=== PATIENT | female | born 1970 | race African-American/Black ===

== ENCOUNTER 2020-04-12 18:36 | Emergency (ER) | payer MEDICARE, OTHER ==
[~2020-04-12] VITALS: Ht 175.3 cm; Wt 99.8 kg
--- NOTE | 2020-04-12 18:54 | NUR ---
PT SELF PRESENTS TO ED. AMBULATORY W/ STETADY GAIT C/O DEPRESSION AND SUICIDAL IDEATION X 1 WEEK S/P FROM A FAMILY MEMBER. PT DENIES HI. PT IS WILLING TO GO VOLUNTARY TO PSYCH FACILITY. COOPERATIVE TO STAFF. AWAITING MD HOWELL.
--- NOTE | 2020-04-12 18:56 | NUR ---
DR DIAZ AT BEDSIDE FOR EVAL.
--- NOTE | 2020-04-12 19:00 | NUR ---
LIGHTING FIXTURES DECORATOR AT BEDSIDE FOR BLOOD DRAW.
--- NOTE | 2020-04-12 19:05 | NUR ---
REC'D REPORT FROM MELANI RAMSEY FOR ROBBIE
[2020-04-12 19:06] LABS: BASOPHILS # (AUTO) 0.1 /CMM (0.0-0.2); BASOPHILS % (AUTO) 1.2 % (0.0-2.0); EOSINOPHILS % (AUTO) 4.7 % (0.0-6.0); HEMATOCRIT 35 % (33-45); HEMOGLOBIN 11.4 g/dL (11.5-14.8); LYMPHOCYTES # (AUTO) 1.9 /CMM (0.8-4.8); LYMPHOCYTES % (AUTO) 35.2 % (20.0-44.0); MEAN CORPUSCULAR HGB CONC 32 g/dl (31.0-36.0); MEAN CORPUSCULAR VOLUME 76 fL (82-100); MONOCYTES # (AUTO) 0.6 /CMM (0.1-1.30); MONOCYTES % (AUTO) 10.4 % (2.0-12.0); NEUTROPHILS # (AUTO) 2.6 /CMM (1.8-8.9); NEUTROPHILS % (AUTO) 48.5 % (43.0-81.0); PLATELET COUNT (AUTO) 222 /CMM (150-450); RED BLOOD CELL COUNT(AUTO) 4.67 MIL/uL (4.0-5.2); WHITE BLOOD COUNT (AUTO) 5.4 K/uL (4.3-11.0)
--- NOTE | 2020-04-12 19:15 | NUR ---
REPORT TO KVNG POLO FOR ROBBIE.
[2020-04-12 19:22] LABS: ALANINE AMINOTRANSFERASE 50 U/L (12-78); ALBUMIN 3.2 g/dL (3.4-5.0); ALCOHOL, BLOOD < 3 mg/dL (0-0); ALKALINE PHOSPHATASE 77 U/L (46-116); ASPARTATE AMINOTRANSFERASE 22 U/L (15-37); BILIRUBIN,DIRECT 0.1 mg/dL (0.0-0.2); BILIRUBIN,TOTAL 0.1 mg/dL (0.2-1.0); CARBON DIOXIDE 32 mmol/L (21-32); CHLORIDE 103 mmol/L (98-107); CREATININE 0.7 mg/dL (0.6-1.3); GLUCOSE 85 mg/dL (74-106); POTASSIUM 3.7 mmol/L (3.5-5.1); SODIUM SERUM 140 mmol/L (136-145); TOTAL PROTEIN, SERUM 7.2 g/dL (6.4-8.2); UREA NITROGEN, BLOOD 26 mg/dL (7-18)
[2020-04-12 19:25] LABS: BILIRUBIN,URINE Negative (NEGATIVE); COLOR,URINE YELLOW (YELLOW); LEUKOCYTE ESTERASE ,URINE Small (NEGATIVE); NITRITE, URINE Negative (NEGATIVE); PROTEIN,URINE Negative (NEGATIVE); UGLUCOSE Negative (NEGATIVE); UROBILINOGEN,URINE 0.2 EU/dL (0.2)
[2020-04-12 19:34] LABS: CALCIUM, SERUM 8.8 mg/dL (8.5-10.1)
[2020-04-12 19:35] LABS: ACETAMINOPHEN < 10 ug/ml (10-30)
[2020-04-12 19:36] LABS: RBC,URINE 0-2 /HPF (0-2)
[2020-04-12 19:37] LABS: BACTERIA,URINE Few /HPF (None Seen)
--- NOTE | 2020-04-12 19:40 | NUR ---
JUSTOID SWABBED, SENT TO LAB.
--- NOTE | 2020-04-12 20:07 | NUR ---
CLINICAL AND FACESHEET FAXED TO [facility] FOR VOLUNTARY ADMISSION.
--- NOTE | 2020-04-12 21:10 | NUR ---
PT WATCHING TV, NAD NOTED.
--- NOTE | 2020-04-12 21:32 | NUR ---
TRANSFER INFORMATION; PT ACCEPTED AT [facility] ACCEPTING MD ALTAMIRANO PHONE # FOR REPORT PT WILL GO TO UNIT 1
--- NOTE | 2020-04-12 22:08 | NUR ---
CALLED [id number] FOR TRANSPORT TRIP #[phone].
--- NOTE | 2020-04-12 22:24 | NUR ---
ATTEMPTED TO GIVE REPORT TO KELLY RAUSCH, NO ANSWER. WILL FOLLOW UP
--- NOTE | 2020-04-12 22:33 | NUR ---
[facility] ETA 0030
--- NOTE | 2020-04-12 22:53 | NUR ---
REPORT GIVEN TO MELANI HOLLIS FROM [facility] FOR [facility]
--- NOTE | 2020-04-13 00:33 | NUR ---
REPORT GIVEN TO [facility] UN[address] FOR TRANSPORTATION ROBBIE
[2020-04-13 00:34] VITALS: BP 138/77
== END 2020-04-13 00:39 ==
LOC: ER 18:44
DX: R45.851 Suicidal ideations (principal); F31.9 Bipolar disorder, unspecified; I10 Essential (primary) hypertension; Z20.822 Contact with and (suspected) exposure to COVID-19; J45.909 Unspecified asthma, uncomplicated; Z88.2 Allergy status to sulfonamides
CPT/HCPCS: 36415; 80048; 80076; 80299; 80307; 80320; 81001; 84703; 85025; 87086; 87426; 99285; C9803; G0480

== ENCOUNTER 2020-05-03 15:26 | Emergency (ER) | payer OTHER ==
[~2020-05-03] VITALS: Ht 175.3 cm; Wt 95.7 kg
--- NOTE | 2020-05-03 15:40 | NUR ---
THE PATIENT BIB FOR C/O HEARING VOICES TELLING HER TO OD ON MEDS, WANTS TO BE ADMITTED VOLUNTARILY. THE PATIENT IS ALERT AND ORIENTED X3. DENIES PAIN. IN ROOM AIR AND DENIES SOB. RESPIRATION REGULAR AND UNLABORED. THE PATIENT IS PROVIDED WITH A BLANKET FOR COMFORT. WILL CONTINUE TO MONITOR.
[2020-05-03 16:55] LABS: BASOPHILS # (AUTO) 0.1 /CMM (0.0-0.2); BASOPHILS % (AUTO) 1.4 % (0.0-2.0); EOSINOPHILS % (AUTO) 4.9 % (0.0-6.0); HEMATOCRIT 37 % (33-45); HEMOGLOBIN 12.2 g/dL (11.5-14.8); LYMPHOCYTES # (AUTO) 1.8 /CMM (0.8-4.8); LYMPHOCYTES % (AUTO) 39.5 % (20.0-44.0); MEAN CORPUSCULAR HGB CONC 33 g/dl (31.0-36.0); MEAN CORPUSCULAR VOLUME 76 fL (82-100); MONOCYTES # (AUTO) 0.5 /CMM (0.1-1.30); MONOCYTES % (AUTO) 11.6 % (2.0-12.0); NEUTROPHILS # (AUTO) 1.9 /CMM (1.8-8.9); NEUTROPHILS % (AUTO) 42.6 % (43.0-81.0); PLATELET COUNT (AUTO) 206 /CMM (150-450); RED BLOOD CELL COUNT(AUTO) 4.86 MIL/uL (4.0-5.2); WHITE BLOOD COUNT (AUTO) 4.5 K/uL (4.3-11.0)
[2020-05-03 17:07] LABS: BILIRUBIN,URINE Negative (NEGATIVE); COLOR,URINE DARK YELLOW (YELLOW); LEUKOCYTE ESTERASE ,URINE Negative (NEGATIVE); NITRITE, URINE Negative (NEGATIVE); PH,URINE 5.5 (5.0-8.0); PROTEIN,URINE Negative (NEGATIVE); UGLUCOSE Negative (NEGATIVE); UROBILINOGEN,URINE 0.2 EU/dL (0.2)
[2020-05-03 17:35] LABS: ALANINE AMINOTRANSFERASE 26 U/L (12-78); ALBUMIN 3.5 g/dL (3.4-5.0); ALCOHOL, BLOOD < 3 mg/dL (0-0); ALKALINE PHOSPHATASE 82 U/L (46-116); ASPARTATE AMINOTRANSFERASE 17 U/L (15-37); BILIRUBIN,TOTAL 0.2 mg/dL (0.2-1.0); CALCIUM, SERUM 8.8 mg/dL (8.5-10.1); CARBON DIOXIDE 26 mmol/L (21-32); CHLORIDE 102 mmol/L (98-107); CREATININE 0.7 mg/dL (0.6-1.3); GLUCOSE 77 mg/dL (74-106); POTASSIUM 3.7 mmol/L (3.5-5.1); SODIUM SERUM 138 mmol/L (136-145); TOTAL PROTEIN, SERUM 7.5 g/dL (6.4-8.2); UREA NITROGEN, BLOOD 19 mg/dL (7-18)
[2020-05-03 17:51] LABS: BACTERIA,URINE Moderate /HPF (None Seen); RBC,URINE 21-50 /HPF (0-2)
[2020-05-03 17:52] LABS: SQUAMOUS EPITHELIAL CELL,UR Many /HPF (None Seen)
[2020-05-03 17:52] LABS: ACETAMINOPHEN < 0 ug/ml (10-30)
--- NOTE | 2020-05-03 17:56 | NUR ---
Patient is resting comfortably in bed with eyes closed. Easily aroused. VSS
--- NOTE | 2020-05-03 19:30 | NUR ---
CLINICAL AND FAXED TO [facility] INTAKE FOR VOLUNTARY PSYCH ADMISSION.
--- NOTE | 2020-05-04 00:25 | NUR ---
PT ACCEPTED AT [facility] ACCEPTING MD CALDWELL PHONE# FOR REPORT EXT [phone] ROOM WILL BE PROVIDED DURING REPORT.
--- NOTE | 2020-05-04 01:01 | NUR ---
[facility] CALL THE CAR CALLED FOR TRANSPORT. TRIP# [phone]
--- NOTE | 2020-05-04 01:17 | NUR ---
[address] FROM CALL THE CAR BOBBI ETA WILL BE AT [phone]
--- NOTE | 2020-05-04 01:57 | NUR ---
REPORT GIVEN TO ROSEMARY POLO FOR ROBBIE
[2020-05-04 05:10] VITALS: BP 129/63
--- NOTE | 2020-05-04 05:13 | NUR ---
REPORT GIVEN TO [facility] EMT, PT TRANSFERED.
== END 2020-05-04 05:17 ==
LOC: ER 15:27
DX: R45.851 Suicidal ideations (principal); F31.9 Bipolar disorder, unspecified; J45.909 Unspecified asthma, uncomplicated; I10 Essential (primary) hypertension; Z82.49 Family history of ischemic heart disease and other diseases of the circulatory system; Z20.822 Contact with and (suspected) exposure to COVID-19
CPT/HCPCS: 36415; 80048; 80076; 80299; 80307; 80320; 81001; 84703; 85025; 87086; 87426; 99285; C9803; G0480

== ENCOUNTER 2020-06-08 09:55 | Emergency (ER) | payer MEDICARE, OTHER ==
[~2020-06-08] VITALS: Ht 175.3 cm; Wt 95.3 kg
--- NOTE | 2020-06-08 11:02 | NUR ---
PATIENT BIBS FOR C/O FEELING SUICIDAL BY OVERDOSING ON MEDS, REQUESTING TO GO TO [facility] FOR VOLUMTARY ADMISSION. DENIES SOB. IN ROOM AIR AND DENIES SOB. RESPIRATION REGULAR AND UNLABORED. WILL CONTINUE TO MONITOR THE PATIENT. SITTER AT THE BEDSIDE.
[2020-06-08 11:13] LABS: BILIRUBIN,URINE Negative (NEGATIVE); COLOR,URINE RED (YELLOW); LEUKOCYTE ESTERASE ,URINE Trace (NEGATIVE); NITRITE, URINE Negative (NEGATIVE); PH,URINE 6.5 (5.0-8.0); PROTEIN,URINE Trace mg/dl (NEGATIVE); UGLUCOSE Negative (NEGATIVE); UROBILINOGEN,URINE 0.2 EU/dL (0.2)
[2020-06-08 11:17] LABS: BASOPHILS % (AUTO) 0.6 % (0.0-2.0); EOSINOPHILS % (AUTO) 2.7 % (0.0-6.0); HEMATOCRIT 39 % (33-45); HEMOGLOBIN 12.5 g/dL (11.5-14.8); LYMPHOCYTES # (AUTO) 1.4 /CMM (0.8-4.8); LYMPHOCYTES % (AUTO) 26.9 % (20.0-44.0); MEAN CORPUSCULAR HGB CONC 32 g/dl (31.0-36.0); MEAN CORPUSCULAR VOLUME 77 fL (82-100); MONOCYTES # (AUTO) 0.5 /CMM (0.1-1.30); MONOCYTES % (AUTO) 10.1 % (2.0-12.0); NEUTROPHILS % (AUTO) 59.7 % (43.0-81.0); PLATELET COUNT (AUTO) 229 /CMM (150-450); RED BLOOD CELL COUNT(AUTO) 5.02 MIL/uL (4.0-5.2); WHITE BLOOD COUNT (AUTO) 5.1 K/uL (4.3-11.0)
[2020-06-08 11:25] LABS: CALCIUM, SERUM 8.4 mg/dL (8.5-10.1); CARBON DIOXIDE 29 mmol/L (21-32); CHLORIDE 104 mmol/L (98-107); CREATININE 0.6 mg/dL (0.6-1.3); GLUCOSE 95 mg/dL (74-106); POTASSIUM 3.6 mmol/L (3.5-5.1); SODIUM SERUM 140 mmol/L (136-145); UREA NITROGEN, BLOOD 13 mg/dL (7-18)
[2020-06-08 11:32] LABS: BACTERIA,URINE Few /HPF (None Seen); RBC,URINE TOO NUMEROUS TO COUN /HPF (0-2); SQUAMOUS EPITHELIAL CELL,UR Few /HPF (None Seen); WBC,URINE 0-3 /HPF (0-3)
[2020-06-08 11:37] LABS: ALANINE AMINOTRANSFERASE 19 U/L (12-78); ALBUMIN 3.5 g/dL (3.4-5.0); ALCOHOL, BLOOD < 3 mg/dL (0-0); ALKALINE PHOSPHATASE 77 U/L (46-116); ASPARTATE AMINOTRANSFERASE 16 U/L (15-37); BILIRUBIN,DIRECT 0.1 mg/dL (0.0-0.2); BILIRUBIN,TOTAL 0.3 mg/dL (0.2-1.0); TOTAL PROTEIN, SERUM 7.4 g/dL (6.4-8.2)
[2020-06-08 11:38] LABS: ACETAMINOPHEN 0 ug/ml (10-30)
--- NOTE | 2020-06-08 13:29 | NUR ---
LAB CALLED PT COVID RESULT NEGATIVE (-)
--- NOTE | 2020-06-08 14:27 | NUR ---
EMPLOYEE RELATIONS ADMINISTRATOR AT BEDSIDE
--- NOTE | 2020-06-08 14:35 | NUR ---
SS Consult : SS consult requested for: SI+. JON met with pt. bedside. The pt. is a 50 year old black female. The pt. is alert & oriented x 4. Pt. appears well-groomed and makes appropriate eyE contact. The tp. stated she has SI with plan to OD on meds. Pt. stated she has been diagnosed with Bipolar Disorder and is taking Zoloft & Zyprexa. SW offered pt. psych hospital placement and pt. accepted. Pt. states she only uses Cannabinoids. Pt. denies HI and denies hallucinations. Pt. stated he resides with a friend at [address] [place] [address]. Pt. states she received SSI. Plan: SW referred pt. to [facility] [[address] [place] [address] ] for inpatient psychiatric treatment. Mental Health resources provided: [facility] [address] [place] [address] ; [facility] [address], [place] [address] ; [facility] [address] [facility] [place] [address] ; [facility] [address] [place], [place] [phone] Healthcare Clinics: [facility] [address], [address] [place]. [place] ; [facility] [address] [place] [address]; [facility] [address] [place] [address] [phone] Counseling--Outpatient [facility] [address], [address] [place], [place] [address] (Specializes in in-depth psychotherapy for emotional distress: anxiety, depression, interpersonal conflicts, life transitions, childhood abuse) [facility] [address] [place] [address] (Assist with solving problem marital difficulties, separation & divorce, aging parents, & grief, chronic & terminal illness) [facility] [address] [place], [place] [phone] (Deal with loss & grief, anxiety, marital difficulties) [facility] [address], [address] [place] [phone] (Provide in-home mental services to people who are incapable of leaving their homes) [facility] [address] [place], [place] [phone] [facility] [address] [address] PSYCHIATRIC OUTPATIENT SERVICES [facility] Partial Hospitalization and Intensive Outpatient Program (Managed Care and Reliance Only)[address] [facility] [phone] [facility] Partial Hospitalization and Outpatient [id number] [place], [place] [phone] [facility] Partial Hospitalization and Outpatient [id number] [address] [facility]. [place], [place] [phone] [facility] [id number] [place] [phone] [facility] Partial Hospitalization and Outpatient [id number] [facility] [address] [phone]
--- NOTE | 2020-06-08 18:50 | NUR ---
ACCEPTED AT [facility] UNDER DR ALTAMIRANO GOING TO UNIT II, NUMBER FOR REPORT [phone]
--- NOTE | 2020-06-08 18:53 | NUR ---
CALLED TRANSPORT [facility] ETA [phone]
--- NOTE | 2020-06-08 19:33 | NUR ---
REPORT GIVEN TO SEDA AT [facility] PENDING TRANSFER.
[2020-06-08 19:42] VITALS: BP 111/76
--- NOTE | 2020-06-08 19:43 | NUR ---
transport at bedside report given to emt transport.
== END 2020-06-08 19:44 ==
LOC: ER 10:00
DX: R45.851 Suicidal ideations (principal); F31.9 Bipolar disorder, unspecified; Z20.822 Contact with and (suspected) exposure to COVID-19; F17.200 Nicotine dependence, unspecified, uncomplicated; J45.909 Unspecified asthma, uncomplicated; I10 Essential (primary) hypertension; F20.9 Schizophrenia, unspecified
CPT/HCPCS: 36415; 80048; 80076; 80299; 80307; 80320; 81001; 84703; 85025; 87426; 99285; C9803; G0480